=== PATIENT | male | born 1960 | race Hispanic/Latino ===

== ENCOUNTER → 2017-11-23 | Day surgery (SDC) | payer OTHER ==
[~2017-11-23] MED LIST: CLINDAMYCIN 300 MG/50 ML IV ONE; DEXAMETHASONE SOD PHOS INJ 4 MG/ML VIAL ONE; FENTANYL CITRATE/PF 100MCG/2 ML INJ ONE; GENTAMICIN 80MG/NS 100 ML 200 ML IV ONE; IOPAMIDOL 300MG/ML 50ML INFUS..BTL IV ONE; LIDOCAINE HCL 2% LOCAL INJ 5 ML SDV VIAL INJ ONE; MIDAZOLAM HCL 2 MG/2 ML VIAL ONE; PIPER-TAZ 3.375 GM 50 ML ONE; PROPOFOL IV EMULSION 10 MG/ML 20 ML VIAL ONE; SEVOFLURANE INHAL SOLN 250 ML PEN BTL ONE
--- NOTE | 2018-01-12 02:28 | Operative Report ---
DATE OF PROCEDURE: November 23, 2017 PREOPERATIVE DIAGNOSES: 1. Elevated prostate-specific antigen. 2. Obstructive benign prostatic hypertrophy. POSTOPERATIVE DIAGNOSES: 1. Elevated prostate-specific antigen. 2. Obstructive benign prostatic hypertrophy. OPERATIONS PERFORMED: 1. Transrectal sonography interpretation, no radiologist present. 2. Interpretation of ultrasonographic guidance for needle biopsies, no radiologist present. 3. Transrectal needle biopsies of the prostate (separate procedure performed to evaluate the patient in light of the elevated prostate-specific antigen). 4. Cystourethroscopy with bilateral ureteral catheterization and retrograde ureteropyelography (separate procedure performed to evaluate the patient's urinary system in light of the benign prostatic hypertrophy). 5. Interpretation of retrograde ureteropyelography. 6. Supervision of fluoroscopy, no radiologist present. ANESTHESIA: General. COMPLICATIONS: None. CLINICAL SUMMARY: Isaias Duarte is a 57-year-old man with the above preoperative diagnoses. He is brought for the above procedures. He is aware of the risks of bleeding, infection, injury to adjacent structures, need for additional procedures, and elected to proceed. OPERATIVE PROCEDURE IN DETAIL: Informed consent was verified. Isaias Duarte was properly identified, taken to the operating room, and placed on the cystoscopy table in supine position. Anesthesia was uneventfully begun. The patient was carefully and gently repositioned in dorsal lithotomy position with all pressure points well padded. Real-time ultrasonography was performed. Interpretation of prostate ultrasound: Prostate volume was 37 mL. The seminal vesicles were unremarkable. The capsule was smooth. There were no suspicious hypoechoic lesions that were present. The transition zone was unremarkable. With ultrasonographic guidance, needle biopsies of prostate were taken. Two biopsies were taken at each of 6 locations. These were differentiated right versus left and base versus mid versus apex. The patient's genitalia were prepared and draped in usual sterile fashion. A 22.5-[place] cystoscope sheath with the visual obturator in place was atraumatically inserted into patient's urethra. It was guided down the unremarkable urethra, through the normal sphincteric region, through the prostate bed, which was significant for kissing lateral lobes and visually obstructing BPH. Panendoscopy of the urinary bladder revealed mild trabeculations, normally positioned and configured ureteral orifices, and no suspicious lesions. A ureteral catheter was used to cannulate each ureter, and retrograde ureteral pyelograms were performed. Interpretation of retrograde ureteropyelography: Contrast was instilled in retrograde fashion bilaterally. There were no tumors, no stones, and no diverticula. Unobstructed drainage was observed bilaterally fluoroscopically. The patient's bladder was then drained. The cystoscope was withdrawn, and the patient was uneventfully reversed from anesthesia and taken to recovery room in stable condition. Explicit postoperative instructions were given. Will follow the patient up in the office. Upon followup in the office, will plan to perform uroflowmetry and bladder ultrasonography. Job#: [id number]
== END | disposition home or self-care (01) ==
LOC: OR 09:39
PROVIDERS: ATTEND Urology
DX: C61 Malignant neoplasm of prostate (principal); N40.1 Benign prostatic hyperplasia with lower urinary tract symptoms; N13.8 Other obstructive and reflux uropathy; N40.3 Nodular prostate with lower urinary tract symptoms; R35.1 Nocturia; N32.89 Other specified disorders of bladder; Z01.810 Encounter for preprocedural cardiovascular examination
CPT/HCPCS: 52005; 55700; 74420; 76872; 88305; 93005; C1758; J1100; J1580; J2001; J2250; J2543; Q9967; 76942

== ENCOUNTER → 2018-01-17 | Outpatient (CLI) | payer OTHER ==
[~2018-01-17] MED LIST changes: -CLINDAMYCIN 300 MG/50 ML IV ONE; -DEXAMETHASONE SOD PHOS INJ 4 MG/ML VIAL ONE; -FENTANYL CITRATE/PF 100MCG/2 ML INJ ONE; -GENTAMICIN 80MG/NS 100 ML 200 ML IV ONE; -IOPAMIDOL 300MG/ML 50ML INFUS..BTL IV ONE; +IOPAMIDOL 370 MG/ML 200 ML INFUS..BTL INJ ONE; -LIDOCAINE HCL 2% LOCAL INJ 5 ML SDV VIAL INJ ONE; -MIDAZOLAM HCL 2 MG/2 ML VIAL ONE; -PIPER-TAZ 3.375 GM 50 ML ONE; -PROPOFOL IV EMULSION 10 MG/ML 20 ML VIAL ONE; -SEVOFLURANE INHAL SOLN 250 ML PEN BTL ONE; +SODIUM CHLORIDE 0.9% 50ML 50 ML ONE
--- NOTE | 2018-01-17 10:37 | Diagnostic Imaging Report ---
PROCEDURE: Frontal and lateral views of the chest. COMPARISON: None. INDICATIONS: PROSTATE CANCER FINDINGS: Lines/tubes: None. Lungs: The lungs are well inflated and clear. There is no evidence of pneumonia or pulmonary edema. Pleura: There is no pleural effusion or pneumothorax. Heart and mediastinum: The cardiomediastinal silhouette si unremarkable. Bones: No acute bony abnormality. IMPRESSION: No acute cardiopulmonary disease. Dictated by: NIKKI CAM M.D. on 01/17/2018 at 10:43 Electronically approved by: NIKKI CAM M.D. on 01/17/2018 at 10:43
--- NOTE | 2018-01-17 12:19 | Diagnostic Imaging Report ---
EXAM: CT Abdomen and Pelvis WITH contrast INDICATION: \S\PROSTATE CANCER COMPARISON: None. TECHNIQUE: Abdomen and pelvis were scanned utilizing a multidetector helical scanner from the lung base to the pubic symphysis after administration of IV contrast. Coronal and sagittal reformations were obtained. Routine protocol was performed. Scan was performed when during portal venous phase. IV CONTRAST: 100 mL of Isovue 370 ORAL CONTRAST: Water COMPLICATIONS: None RADIATION DOSE: Total DLP: 265.83 mGy*cm Estimated effective dose: (DLP x 0.015 x size factor) mSv CTDIvol has been reviewed. It is below the limits set by the Radiation Protocol Committee (RPC). FINDINGS: LINES and TUBES: None. LOWER THORAX: Unremarkable HEPATOBILIARY: The liver is diffuse hypodense compared to the spleen, consistent with diffuse hepatic diffuse hepatic steatosis. No focal hepatic lesions. No biliary ductal dilation. GALLBLADDER: No radio-opaque stones or sludge. No wall thickening. SPLEEN: No splenomegaly. PANCREAS: No focal masses or ductal dilatation. ADRENALS: No adrenal nodules KIDNEYS/URETERS: Kidneys enhance symmetrically. No hydronephrosis. No cystic or solid mass lesions. No stones. GI TRACT: No abnormal distention, wall thickening, or evidence of bowel obstruction. There are diverticula within the colon without evidence of diverticulitis. Appendix is normal. PELVIC ORGANS/BLADDER: Prostate measures 6.1 cm in transverse dimension. LYMPH NODES: No lymphadenopathy. VESSELS: Unremarkable. PERITONEUM / RETROPERITONEUM: No free air or fluid. BONES: Unremarkable. SOFT TISSUES: Small bilateral fat-containing inguinal hernias. IMPRESSION: 1. Process enlargement is 6.1 cm in transverse dimension. 2. No lymphadenopathy or evidence of metastatic disease. Signed by: Dr. Neil Murcia M.D. on 01/17/2018 12:16 PM
--- NOTE | 2018-01-17 16:44 | Diagnostic Imaging Report ---
Bone Scan, delayed phase INDICATION: 57 M with prostate cancer; staging COMPARISON: CT abdo/pelvis 01/17/2018 REPORT: Approximately 3 hours following intravenous administration of 25 mCi of Tc-99m MDP, delayed total body images in the anterior and posterior projections and selected spot images were obtained. Distribution of tracer activity is unremarkable throughout the skeletal system. No abnormal accumulation of tracer is seen in the soft tissues or urinary tract. IMPRESSION: No scan evidence of metastatic bone disease. Signed by: Dr. Orquidea Cruz M.D. on 01/17/2018 4:41 PM
== END ==
LOC: NM 09:20
PROVIDERS: ATTEND Urology
DX: C61 Malignant neoplasm of prostate (principal)
CPT/HCPCS: 71046; 74177; 78306; A9503; Q9967